=== PATIENT | male | born 1955 | race Caucasian/White ===

== ENCOUNTER 2020-10-04 04:56 | Inpatient (IN) | payer OTHER ==
[~2020-10-04] VITALS: Ht 180.3 cm; Wt 103.2 kg
[2020-10-04] VITALS (42 sets, daily range): BP systolic 104–139; BP diastolic 57–91
[2020-10-04 10:01] LABS: HEMATOCRIT 40.4 % (42.0-52.0); HEMOGLOBIN 13.7 gm/dL (14.0-18.0); MCH 30.5 pg (26.0-34.0); MCHC 33.8 g/dL (28.0-37.0); MCV 90.1 fL (80.0-100.0); RBC 4.48 mil/uL (4.50-6.00); RDW 14.8 % (10.5-14.5); WBC 23.6 thou/uL (4.0-11.0)
[2020-10-04 10:16] LABS: CALCIUM 8.3 mg/dL (8.5-10.1); CREATININE 1.5 mg/dL (0.7-1.3); POTASSIUM 3.4 mmol/L (3.5-5.1)
[2020-10-04 10:18] LABS: INR 1.19; PROTIME 12.9 Seconds (10.5-12.1)
[2020-10-04 10:23] LABS: ALBUMIN 2.6 g/dL (3.4-5.0); TOTAL BILIRUBIN 2.1 mg/dL (0.2-1.0); TOTAL PROTEIN 7.1 g/dL (6.4-8.2)
--- NOTE | 2020-10-04 15:25 | NUR ---
Chart review. He was air transported from [facility]. Intro to and dcp. He reported he had fall at home on his face went to hospital in [place], then after 7 days dc home and had another fall, then back to hospital in [place] [facility] in [facility]. Not going home till know why is this happen, and kids trying to get some assistance with medical bill for me. No insurance. Not worked in years since this all started. 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 No dme. Independent. No hh or rehab in past. No medication only take Ibuprofen for headache. No pcp. Air ride was better than the ambulance ride per elda. Will cont following as needed for dc needs.
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
[2020-10-04 18:49] LABS: URINE BILIRUBIN NEGATIVE (Negative); URINE BLOOD 3+ (Negative); URINE CLARITY CLEAR; URINE COLOR YELLOW; URINE GLUCOSE-RANDOM* NEGATIVE (Negative); URINE KETONES NEGATIVE (Negative); URINE LEUKOCYTES 2+ (Negative); URINE NITRITE POSITIVE (Negative); URINE PROTEIN (DIPSTICK) 1+ (Negative); URINE SPECIFIC GRAVITY 1.015 (1.005-1.035); URINE UROBILINOGEN >= 8.0 E.U./dl (0.2-1.0)
[2020-10-04 18:58] LABS: CASTS None Seen /LPF (None Seen); SQUAMOUS 0-3 Few /LPF (0-3); URINE WBC >25 Many /HPF (NONE SEEN)
[2020-10-04 18:59] LABS: BACTERIA 1-9 Few /HPF (None Seen); CRYSTALS None Seen /LPF (None Seen); URINE RBC 1-2 Rare /HPF (NONE SEEN)
[2020-10-05 00:06] LABS: GLYCOHEMOGLOBIN (HGB A1C) 6.9 % (4.8-5.6)
[2020-10-05 00:07] VITALS: BP 126/78
[2020-10-05 03:40] VITALS: BP 120/73
--- NOTE | 2020-10-05 05:00 | NUR ---
Pt urinated frequently in this shift. He voids only 50-100 each time. Post void residual obtained. It was > 500 cc per bladder scanner. CUT PLUG PACKER ordered to place blank catheter due to bladder retention. RN attempted x 2 w/o any success due to his anatomy. CUT PLUG PACKER is aware and order to consult urologist in am. VSS. Afebrile this am. Continue working toward goals.
[2020-10-05 05:22] LABS: HEMATOCRIT 37.9 % (42.0-52.0); HEMOGLOBIN 12.8 gm/dL (14.0-18.0); MCH 30.5 pg (26.0-34.0); MCHC 33.7 g/dL (28.0-37.0); MCV 90.6 fL (80.0-100.0); RBC 4.18 mil/uL (4.50-6.00); RDW 14.8 % (10.5-14.5); WBC 19.4 thou/uL (4.0-11.0)
[2020-10-05 06:10] LABS: CALCIUM 7.8 mg/dL (8.5-10.1); CREATININE 1.2 mg/dL (0.7-1.3); POTASSIUM 3.2 mmol/L (3.5-5.1)
[2020-10-05 07:19] VITALS: BP 126/73
[2020-10-05] MEDS ORDERED: ADVIL200 M1 PO (09:53)
[2020-10-05 10:33] LABS: % SATURATION 9 % (20-39); IRON 17 ug/dL (65-175); TIBC 184 ug/dL (250-450)
[2020-10-05 15:14] VITALS: BP 124/83
--- NOTE | 2020-10-05 15:42 | NUR ---
WALTER reviewed chart and spoke with nursing and attending physician. Pt was transferred to from ICU. Neurosurgery and GI consulted. Pt is febrile and on IV abx. Anticipate pt may be ready to discharge home next week. SW spoke with pt regarding discharge plan. Pt states that his family is able to come pick him up when he is ready for discharge. Pt and family live in [place], [place]. No weekend discharge planned. Referral made to [employer] regarding financial assistance. WALTER is following to assist as needed with discharge planning.
--- NOTE | 2020-10-05 18:33 | NUR ---
PT A/O X 4, CALM AND COOPERATIVE THIS SHIFT. PT HAVING FREQUENT URINATION WITH MINIMAL OUTPUT 75-125 PER VOID. UROLOGY ATTEMPTED TO PLACE AMAYA DUE TO RETENTION >500CC POST VOID, BUT UNSUCCESSFUL. PT WILL HAVE SURGERY TOMORROW WITH DR RENAE KISER, UROLOGIST. CONSENT SIGNED AND ON CHART. ASSESSMENENTS PER CHART. PT UPDATED ON POC, FAMILY UPDATED BY PATIENT. RN SPOKE TO GRAND THIS MORNING AND GAVE UPDATE VIA PHONE. WILL CONT TO MONITOR AND FOLLOW POC.
[2020-10-05 19:29] VITALS: BP 130/81
[2020-10-05 21:06] LABS: IgG 1175 mg/dL (603-1613)
[2020-10-06 04:07] LABS: HAV IgM AB (ANTI-HAV IgM) Negative (Negative); HEPATITIS B SURFACE AG Negative (Negative); HEPATITIS C VIRUS AB <0.1 (0.0-0.9)
[2020-10-06 05:49] LABS: ALBUMIN 2.2 g/dL (3.4-5.0); DIRECT BILIRUBIN 0.7 mg/dL (<0.1-0.2); TOTAL BILIRUBIN 1.2 mg/dL (0.2-1.0); TOTAL PROTEIN 6.7 g/dL (6.4-8.2)
[2020-10-06 08:15] VITALS: BP 126/77
--- NOTE | 2020-10-06 08:48 | HC ---
[facility] [place] [address] CONSULTATION Name: BRANDI COSME Room #: 357-P ADM IN M.R.#: [id number] Admission: 10/04/20 Attend Phys: Miguel Evans MD Discharge: Date of : 57 Report #: [id number] THIS REPORT FOR: cc: [facility] - Clinic physician unknown [facility] - Clinic physician unknown Marta Echavarria DO ~ NEUROLOGY CONSULTATION HISTORY OF PRESENT ILLNESS: The patient is a 65-year-old male who was at home. The patient states that he fell in the bathroom, he skinned his knees and hit his head on the carpet. He did not pass out. However, his legs became weak and he fell. He could not get up, so his called the ambulance. He went to the Emergency Room at [facility]. The workup was unremarkable, but because his blood pressure was in the 90s, he was given fluids and because there was concern for sepsis he was transferred. Apparently, the patient was hospitalized 3 weeks prior in [place], [place] and a workup was done including an echocardiogram that showed a normal left ventricular ejection fraction. Lab work was normal. The patient tells me that he does have weakness in his legs generally. He also has back pain and has been told that he has 3 disks in his back that are causing him problems. The patient has been seen by gastroenterology. The patient was noted to have elevated liver functions and abdominal sonogram showed hepatic steatosis, splenomegaly and mild to moderate left hydronephrosis. His CK was 3530. The patient has subsequently been diagnosed with rhabdomyolysis, urosepsis and spinal stenosis. PAST MEDICAL HISTORY: Hypertension, hyperlipidemia, cholestasis. PAST SURGICAL HISTORY: Cholecystectomy. MEDICATIONS: In hospital include Rocephin 1 gram q. 12 hours, enoxaparin 40 mg at bedtime, ondansetron p.r.n. nausea and Tylenol p.r.n. pain and fever. ALLERGIES: None. VITAL SIGNS: Temperature 37.1, pulse rate 88, respiratory rate 18, blood pressure 126/73, bedside pulse oximetry 96% on room air. LABORATORY DATA: Hematology: White blood cell count 19.4, yesterday it was 23.6, hemoglobin 12.8, hematocrit 37.9, MCV 90.6, platelet count 135,000. Urinalysis, 1+ protein, 3+ blood, nitrite positive, leukocyte esterase 2+. [address] [address] CONSULTATION Name: BRANDI COSME Room #: 357-P [facility] IN [facility].#: [id number] Admission: 10/04/20 Attend Phys: Miguel Evans MD Discharge: Date of : 57 Report #: [id number] Chemistry: Sodium 132, the previous day it was 131. Potassium 3.2, chloride 97, carbon dioxide 21, BUN 21, creatinine 1.2, GFR 61, glucose 127. Hemoglobin A1c 6.9, calcium 7.8, iron 17, TIBC 184, iron saturation 9%, ferritin 1174, total bilirubin 2.1, AST 151, ALT 67, alkaline phosphatase 118. Creatinine kinase 3530, total protein 7.1, albumin 2.6. Ceruloplasmin pending. Immunology studies pending. IMAGING STUDIES: Abdominal ultrasound demonstrates diffuse hepatic steatosis, splenomegaly and mild to moderate left hydronephrosis. CT head demonstrates no evidence of acute intracranial hemorrhage or other acute intracranial abnormality. CT lumbar spine demonstrates extensive chronic multilevel lumbar spondylosis, moderate to severe thecal sac stenosis at L4-L5 and severe chronic neural foraminal stenosis on the right at L3-L4 and bilaterally at L5-S1. NEUROLOGIC: Cranial nerves: Extraocular movements intact. Facial expression symmetrical bilaterally. Tongue midline. Shoulder shrug symmetrical bilaterally. Motor exam demonstrates the patient to keep his arms parallel to the bed with his eyes closed, he was able to touch his nose with each finger. Motor exam demonstrates the patient able to lift each leg approximately 6 inches off the bed. Reflexes were trace in the upper extremities. I did not check his patellar reflexes because he has 2 large scabs on his knees from falling. Ankle reflexes are absent. Plantar responses are flexor bilaterally. Coordination reveals intact finger to nose. IMPRESSION AND PLAN: This patient most likely has lower extremity weakness secondary to spinal stenosis. The patient now has rhabdomyolysis with an elevated CPK and is on intravenous fluids for this. The patient also has elevated liver functions and is currently being followed by gastroenterology. The patient may also have a peripheral neuropathy. His hemoglobin A1c is elevated and he most likely has diabetes. I would recommend an outpatient EMG as we do not have the capacity to do EMG at this facility. I will check a B12 level and a serum protein electrophoresis for other treatable causes of neuropathy. I understand the patient also has a Neurosurgery consult pending. I thank you for your kind referral of the patient. <ELECTRONICALLY SIGNED> By: Marta Echavarria DO 10/06/20 0848 1113 [id number] Marta Echavarria DO /nt
--- NOTE | 2020-10-06 15:07 | O ---
[facility] [address] OPERATIVE REPORT Name: BRANDI COSME Room #: 357-P ADM IN M.R.#: [id number] Admission: 10/04/20 Attend Phys: Miguel Evans MD Discharge: Date of : 57 Report #: [id number] THIS REPORT FOR: cc: [facility] - Clinic physician unknown [facility] - Clinic physician unknown Evan Stuart MD ~ PREOPERATIVE DIAGNOSES: Phimosis, urinary retention. 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 SURGEON: Evan Stuart MD POTATO SPOTTER: Raine Malone PA-C ANESTHETIC: General. ESTIMATED BLOOD LOSS: Minimal. COMPLICATIONS: None. FINDINGS: Very thick phimotic foreskin. Dense adhesions even along the martinez. Tissue was sent off for pathology to rule out for cancer. Very dense meatal/fossa navicularis stricture. Also, very dense bulbar urethral stricture. Prostate was obstructing. Bladder showed trabeculations and debris. DRAIN: An 18-Cymro Councill catheter. INDICATIONS: This is a 65-year-old gentleman who was admitted to the hospital. He has urinary tract infection, bilateral hydronephrosis and high postvoid residual. CT shows bilateral hydro with hydroureter bladder with a large prostate. The Melgoza catheter was attempted at bedside, but he had a very thick phimosis and could not be placed. It was felt best to do this in the operating room. Risks and complications explained. He wanted to proceed. DESCRIPTION OF PROCEDURE: After informed consent was obtained, the patient was taken to the operating room suite where he was placed in the dorsal lithotomy position under general anesthetic. The genitalia was prepped and draped in standard fashion. He has a very thick dense phimosis. Cannot retract it. Circumcision incision was made proximally and then a dorsal slit was done. The skin was so thick there that it was very challenging even to cut through it. We were able to eventually get the dense foreskin removed. It was sent for pathology, want to make sure there was no cancer involved. The phimosis was adherent even along the martinez. We could not expose the edge of the martinez due to amount of adhesions. We just left a little rim of foreskin at that level. [address] [address] OPERATIVE REPORT Name: BRANDI COSME Room #: 357-P [facility] IN .R.#: [id number] Admission: 10/04/20 Attend Phys: Miguel Evans MD Discharge: Date of : 57 Report #: [id number] We then did our 4-0 sutures of chromic to reapproximate the edges of the skin. We did get good hemostasis with the cautery prior to this. Once the edges were all approximated with a simple interrupted, we examined the meatus, which was firm and very narrowed. There was obvious stricture there. We used Brimfield sounds to dilate the meatus and fossa navicularis, which was involved. Once we did that, we were able to dilate up to about 24-Cymro, but very hard to go beyond it. So, we tried placing a 22-Cymro scope with very much difficulty, so we used a 17-Cymro scope instead. Once I got into the urethra, we noted at the bulbar urethra, there was a dense stricture there. I got a wire through there, dilated that to about 22-Cymro and then got the 17-Cymro scope through that area guided into the prostate showed there was a lot of debris in the prostate, this was irrigated out as well as trabeculations were noted and thickened bladder wall. At this point, since we were not able to put a 22-Cymro scope in, we elected not to do retrogrades. Most likely the obstruction is due to his prostate as noted from the CT scan. Wire was left in place and over the wire an 18-Cymro Councill catheter was inserted, 10 mL inflated balloon. Cystogram was done to confirm positioning of the catheter. A Melgoza was put to drain. The patient was taken to the recovery room in stable condition. Depending on the final pathology, he will need a repeat evaluation of his stricture disease with a reconstruction specialist. We will also need a followup on his hydro to make sure that resolves with catheter placement and therefore he may benefit from a TURP or laser enucleation of his prostate. <ELECTRONICALLY SIGNED> By: Evan Stuart MD 10/06/20 1507 0946 1056 Evan Stuart MD /nt
[2020-10-06 16:02] VITALS: BP 120/80
--- NOTE | 2020-10-06 18:05 | NUR ---
ASSUMED PATIENT CARE AT 0700. PATIENT HAD CYSTOSCOPY AND CIRCUMCISION. TOLERATED WELL. VSS. DENIES PAIN. SLOWLY TOWARDS POC GOALS.
[2020-10-06 20:03] VITALS: BP 133/87
[2020-10-07 04:09] VITALS: BP 117/81
[2020-10-07 05:42] LABS: HEMATOCRIT 35.6 % (42.0-52.0); HEMOGLOBIN 11.9 gm/dL (14.0-18.0); MCH 30.5 pg (26.0-34.0); MCHC 33.5 g/dL (28.0-37.0); MCV 91.1 fL (80.0-100.0); RBC 3.91 mil/uL (4.50-6.00); RDW 14.7 % (10.5-14.5)
[2020-10-07 06:05] LABS: CALCIUM 7.9 mg/dL (8.5-10.1); DIRECT BILIRUBIN 0.4 mg/dL (<0.1-0.2); POTASSIUM 4.1 mmol/L (3.5-5.1); TOTAL BILIRUBIN 0.7 mg/dL (0.2-1.0); TOTAL PROTEIN 6.3 g/dL (6.4-8.2)
[2020-10-07 07:14] VITALS: BP 128/89
--- NOTE | 2020-10-07 08:20 | NUR ---
PT PROGRESING TOWARDS D/C GOALS. VSS AFEBRILE. PENILE DRAINAGE MINIMAL. MEDICATED FOR PAIN THIS AM WITH TYLENOL WITH ADEQUATE RELIEF OBTAINED. NO S/S BLEEDING OR DISTRESS NOTED.
[2020-10-07 12:07] LABS: ANA INTERPRETATION Negative (Negative)
[2020-10-07 15:07] VITALS: BP 130/83
--- NOTE | 2020-10-07 18:29 | NUR ---
ASSUMED PATIENT CARE AT 0700. A/O X4. NO DISTRESS NOTED. PROGRESSING TOWARDS POC GOALS.
--- NOTE | 2020-10-07 18:36 | NUR ---
ASSUMED PATIENR CARE AT 0700. NO DISTRESS NOTED. PROGRESSING TOWARDS POC GOALS.
[2020-10-07 19:30] VITALS: BP 136/81
--- NOTE | 2020-10-07 23:38 | NUR ---
PT ALERT AND ORIENTED X4. VSS AFEBRILE. HRR UNLABORED ON RA. BACIRACIN APPLIED TO PENIS ORDERED. NO NEW DRAINAGE NOTED. SCABS ARE INTACT. IV ABX INFUSING LEFT AC. NO S/S DISTRESS. NO C/O PAIN PRESENTLY. NO BLEEDING NOTED.
[2020-10-08 04:10] VITALS: BP 129/83
--- NOTE | 2020-10-08 06:11 | NUR ---
PT PROGRESSING TOWARDS D/C GOALS VSS. AFEBRILE THIS AM. C/O PAIN TO PENILE AREA. MEDICATED WITH 2 TYLENOL. PT NOW FELL BACK TO SLEEP . NO S/S PAIN. NO BLEEDING NOTED FROM PENIS TONIGHT.
[2020-10-08 07:13] VITALS: BP 131/77
--- NOTE | 2020-10-08 14:49 | NUR ---
SW reviewed chart and spoke with nursing and attending physician. Pt is progressing towards goals for discharge. Pt had blank catheter placed and will be discharged with blank. SW met with pt at bedside to discuss discharge plan. Pt states that his will be coming on Thursday. Pt's will be leaving [place], [place] around [id number] Thursday. SW discussed need for PCP and urology follow up. Pt states that his and granddtr are looking at some options and will be making follow up appts. SW updated attending physician. SW is following to assist as needed with discharge planning.
[2020-10-08 15:13] VITALS: BP 143/84
[2020-10-08 17:07] LABS: GLOBULIN TOTAL 3.4 g/dL (2.2-3.9); M-SPIKE Not Observed g/dL (Not Observed)
--- NOTE | 2020-10-08 18:45 | NUR ---
PT HAS AMAYA CATHETER WITH ADEQUATE OUTPUT. PT DENIED PAIN THIS SHIFT.
[2020-10-08 19:09] VITALS: BP 155/90
--- NOTE | 2020-10-09 00:55 | NUR ---
PT ALERT AND ORIENTED X4. VSS AFEBRILE. C/O PENILE PAIN 06/06. MEDICATED WITH TYLENOL. PT SLEPT SHORTLY AFTER. NO BLEEDING NOTED. BED DOWN. CALL LIGHT IN REACH. NO S/S DISTRESS.
[2020-10-09 04:54] VITALS: BP 161/95
--- NOTE | 2020-10-09 06:16 | NUR ---
PT PROGRESSING WELL TOWARDS D/C GOALS VSS. DENIED PAIN THIS AM. NO BLEEDING NOTED FROM PENIS.
[2020-10-09 07:12] VITALS: BP 149/92
--- NOTE | 2020-10-09 13:58 | NUR ---
SW reviewed chart and spoke with nursing and attending physician. Pt is progressing towards goals for discharge. Discharge home is anticipated for tomorrow. PT recommends pt have a roller walker ordered. SW discussed with Director of Case Mgmt. Case Mgmt to vouch for roller walker through [facility]. SW notified [facility] liaison. SW met with pt at bedside to discuss discharge plan. Pt confirms that his will be arriving in between 1945-0844 tomorrow morning. SW explained need for a walker and to arrange follow up care in [place] with urology and primary care. Pt verbalized understanding. SW is following to assist as needed with discharge planning.
[2020-10-09 15:27] VITALS: BP 149/88
--- NOTE | 2020-10-09 18:23 | NUR ---
PROGRESSING TOWARDS POC GOALS.
[2020-10-09 19:55] VITALS: BP 161/86
[2020-10-10 03:27] VITALS: BP 128/90
--- NOTE | 2020-10-10 05:37 | NUR ---
PROGRESS PT A/O X4 C/O PAIN TO PENIS WITH PERICARE, DENIES NEED FOR MEDICATION. SITE CLEANSED, CATHETER CARE PROVIDED AND BACITRACIN APPLIED ORDERED. NOT OOB THIS SHIFT BUT REPOSITIONS SELF NEEDED. VSS IV TO LF INTACT FLUSHES WITHOUT DIFFICULTY. IVT ABT ADMINISTERED ORDERED. PT PLANS TO DC HOME TODAY WITH WALKER, AMAYA, PRESCRIPTIONS AND FOLLOW UP DIRECTIONS. LARGE AMOUNTS OF CLEAR YELLOW URINE PT DRINKING LARGE AMOUNTS OF WATER AND OTHER LIQUIDS. R/V UNDERSTANDING OF CATHETER CARE, WE DISCUSSED SELF CARE I WAS DOING HS CARE.
[2020-10-10 07:45] VITALS: BP 133/89
[2020-10-10] MEDS ORDERED: B-12500 MCG PO (07:45)
[2020-10-10] MEDS ORDERED: FLOMAX0.4 MG PO (07:45)
[2020-10-10] MEDS ORDERED: AVODART0.5 MG PO (07:45)
--- NOTE | 2020-10-10 10:09 | PATH ---
[facility] [address] [place] [address] PATHOLOGY RPT PROCEDURE Name: BRANDI DUONG Room #: 357-P [facility] IN M.R.#: [id number] Admission: 10/04/20 Date of : 57 Discharge: Report #: [id number] Path Case #: [id number] [facility] Accession Number: [id number] . 01 Material submitted: . foreskin - PENILE FORESKIN . 01 Clinical history: . CIRCUMCISION CYSTOSCOPY . 02 Diagnosis: Penile foreskin, circumcision: - Reactive squamous epithelium with scattered foci of mild chronic inflammation. (IUV/db; 10/09/2020) LBQ 10/09/2020 1428 Local . 02 Electronically signed: . Yudi Mcgee MD, Pathologist NPI- [id number] . 01 Gross description: . The specimen is received in formalin, labeled "Brandi Duong and penile foreskin". It consists of 2 unoriented skin and soft tissue fragments measuring 3.0 and 3.5 cm. Each fragment displays a segment of wisdom, wrinkled and hairbearing skin. No lesions or abnormalities are grossly identified on the epidermal surface. The resection surface of each fragment is inked black. Sectioning reveals wisdom-white rubbery cut surfaces. Represent sections are submitted in A1. (MRF; 10/08/2020) MFE/MFE 10/08/2020 [facility] Local . 02 Pathologist provided ICD-10: N48.29 . 02 CPT . 573646 Specimen Comment: A courtesy copy of this report has been sent to [phone], [phone] Specimen Comment: [id number] Specimen Comment: Report sent to / DR KISER Specimen Comment: A duplicate report has been generated due to demographic updates. Performed at: 01 [facility] [address], [place] [id number] [address] [address] PATHOLOGY RPT PROCEDURE Name: BRANDI DUONG Room #: 357-P [facility] IN M.R.#: [id number] Admission: 10/04/20 Date of : 57 Discharge: Report #: [id number] Path Case #: [id number] MD Ron Paris MD Phone: [phone] Performed at: 02 [facility] [place] [id number] MD Yudi Mcgee MD Phone: [phone]
[2020-10-10 12:16] VITALS: BP 133/89
--- NOTE | 2020-10-10 12:42 | NUR ---
PATIENT DC TO HOME. DC PAPERWORK DISCUSSED WITH PATIENT, SPOUSE AND DAUGHTER IN LAW AT BEDSIDE. AMAYA SUPPLIES SENT HOME WITH PATIENT PER ORDERS. INSTRUCTIONS AND EDUCATION GIVEN TO PATIENT AND SPOUSE FOR AMAYA CARE. BOTH VERBALIZE AND DEMONSTRATE UNDERSTANDING. IV DC FROM LEFT AC, NO BLEEDING OR HEMATOMA NOTED. ALL QUESTIONS ANSWERED.
--- NOTE | 2020-10-10 13:40 | NUR ---
DISCHARGE NOTE: SW reviewed chart and spoke with nursing and attending physician. Pt is medically stable for discharge home today. Pt's and family at bedside. Melgoza catheter supplies provided. Education provided to pt and family. [facility] liaison provided pt with a roller walker this morning. Pt's family transported pt home earlier today. No additional SW needs identified at this time. SW is available to assist should needs arise.
== END 2020-10-10 12:40 | disposition home or self-care (01) | DRG 872 ==
LOC: ICU 04:56 → 3W 23:09
PROVIDERS: Nurse Practitioner; Nurse Practitioner Family; Psychiatry & Neurology Neurology; ADMIT Hospitalist; ATTEND Hospitalist
PROC: 0T7D8ZZ Dilation of Urethra, Via Natural or Artificial Opening Endoscopic (ICD-10-PCS; principal; 2020-10-06)
PROC: 0VTTXZZ Resection of Prepuce, External Approach (ICD-10-PCS; principal; 2020-10-06)
DX: A41.59 Other Gram-negative sepsis (principal); N17.9 Acute kidney failure, unspecified; M62.82 Rhabdomyolysis; N13.6 Pyonephrosis; R33.9 Retention of urine, unspecified; N47.1 Phimosis; N35.912 Unspecified bulbous urethral stricture, male; I10 Essential (primary) hypertension; E78.5 Hyperlipidemia, unspecified; F17.210 Nicotine dependence, cigarettes, uncomplicated; E87.6 Hypokalemia; R73.9 Hyperglycemia, unspecified; M47.896 Other spondylosis, lumbar region; K76.0 Fatty (change of) liver, not elsewhere classified; G62.9 Polyneuropathy, unspecified; M51.36 Other intervertebral disc degeneration, lumbar region; M48.061 Spinal stenosis, lumbar region without neurogenic claudication; E53.8 Deficiency of other specified B group vitamins; Z90.49 Acquired absence of other specified parts of digestive tract; Z79.899 Other long term (current) drug therapy
CPT/HCPCS: 10779; 10879; 50010; 50101; 50455; 51566; 51624; 56524; 56674; 56815; 62110; 62900; 70005